=== PATIENT | female | born 1950 | race Caucasian/White ===

== ENCOUNTER 2019-02-15 08:49 | Day surgery (SDC) | payer BC, OTHER ==
[~2019-02-15] VITALS: Ht 170.2 cm; Wt 99.8 kg
[2019-02-15] MEDS ORDERED: ONDANSETRON HCL 4 MG/2 ML VIAL IVP PRN ×2 (10:00→10:30)
[2019-02-15] MEDS ORDERED: fentaNYL CITRATE/PF 100 MCG/2 ML AMP IVP PRN ×2 (10:00)
[2019-02-15] MEDS ORDERED: KETOROLAC TROMETHAMINE 30 MG VIAL IVP PRN (10:00)
[2019-02-15] MEDS ORDERED: HYDROcodone/ACETAMIN 5-325 MG TAB (NORCO/ VICODIN) PO PRN (10:30)
[2019-02-15] MEDS ORDERED: LR 1,000 ML IV.SOLN IV ONE (11:05)
[2019-02-15] MEDS ORDERED: MIDAZOLAM HCL 5 MG/ML VIAL (VERSED) IV ONE (11:05)
[2019-02-15] MEDS ORDERED: NS 1000 ML IV.SOLN IV ONE (11:05)
[2019-02-15] MEDS ORDERED: SEVOFLURANE 15 MIN GAS INH ONE (11:05)
[2019-02-15] MEDS ORDERED: PROPOFOL 200MG/ 20ML VIAL (DIPRIVAN) IV ONE (11:05)
[2019-02-15] MEDS ORDERED: fentaNYL CITRATE/PF 100 MCG/2 ML AMP ONE (11:05)
[2019-02-15 13:13] VITALS: BP_SYST 139
== END 2019-02-15 12:35 | disposition home or self-care (01) ==
LOC: SDS 08:49 → SMU 08:50 → SDS 12:35
PROVIDERS: ATTEND Specialist
DX: N84.0 Polyp of corpus uteri (principal); N95.0 Postmenopausal bleeding; R93.89 Abnormal findings on diagnostic imaging of other specified body structures; N90.89 Other specified noninflammatory disorders of vulva and perineum; I34.1 Nonrheumatic mitral (valve) prolapse; I10 Essential (primary) hypertension; E78.00 Pure hypercholesterolemia, unspecified; Z79.899 Other long term (current) drug therapy; Z85.3 Personal history of malignant neoplasm of breast; Z85.820 Personal history of malignant melanoma of skin; Z88.0 Allergy status to penicillin; Z68.34 Body mass index [BMI] 34.0-34.9, adult
CPT/HCPCS: 58558; 88305; 93005; J2250; J2704; J3010; J7030; J7120